=== PATIENT | male | born 1990 | race Asian ===

== ENCOUNTER 2016-12-28 09:40 | Emergency (ER) | payer SELFPAY ==
[~2016-12-28] VITALS: Ht 177.8 cm; Wt 82.0 kg
[2016-12-28] MEDS ORDERED: TETANUS, DIPHTHERIA, PERTUSSIS VAC/PF 0.5ML (>7YR OLD) IM ONE (12:30)
[2016-12-28] MEDS ORDERED: VANCOMYCIN 1 G PREMIX 200 ML IV SCH (12:30)
[2016-12-28] MEDS ORDERED: KETOROLAC 30MG/ML VIAL IV ONE (12:30)
[2016-12-28] MEDS ORDERED: CEFAZOLIN 1000MG PREMIX 50 ML IV ONE (16:45)
[2016-12-28] MEDS ORDERED: BACITRACIN ZINC OINT UDPKT TOP ONE (17:00)
[2016-12-28] MEDS ORDERED: LIDOCAINE HCL 1% 20ML VIAL (Pyxis) INJ MC ONE (17:00)
[2016-12-28 18:13] VITALS: BP 127/68
== END 2016-12-28 18:14 | disposition home or self-care (01) ==
LOC: ER 12:06 → EDBD 12:06 → ER 18:14
DX: L02.512 Cutaneous abscess of left hand (principal); F17.200 Nicotine dependence, unspecified, uncomplicated; F12.10 Cannabis abuse, uncomplicated; Z23 Encounter for immunization
CPT/HCPCS: 10060; 73130; 87040; 87070; 87077; 87205; 90471; 90715; 96365; 96366; 96367; 96375; 99285; J0690; J1885; J3370; J3490; Z7610